=== PATIENT | female | born 1975 | race Caucasian/White ===

== ENCOUNTER 2017-06-20 15:43 | Outpatient (CLI) | payer MEDICAID ==
[2017-06-20 16:12] LABS: BASOPHILS 0.2 % (0-2); EOSINOPHILS 1.5 % (0-7); HEMATOCRIT 34.8 % (36.0-48.0); IMMATURE GRANULOCYTES 0.6 % (0-5); LYMPHOCYTES 16.1 % (15-50); MCH 29.9 pg (26.0-34.0); MCHC 34.5 g/dL (31.0-37.0); MCV 86.6 fL (80.0-100.0); MEAN PLATELET VOLUME 10.6 fL (7.4-10.4); NEUTROPHILS 73.6 % (40-80); PLATELET COUNT 192 10x3/uL (130-400); RBC 4.02 10x6/uL (4.00-5.40); RDW 13.5 % (11.5-14.5); WBC 10.7 10x3/uL (4.8-10.8)
[2017-06-20 16:28] LABS: ALBUMIN 2.6 g/dL (3.4-5.0); ALKALINE PHOSPHATASE 170 U/L (46-116); ALT (SGPT) 18 U/L (10-68); BILIRUBIN - INDIRECT 0.11 mg/dL (0.00-1.00); BILIRUBIN - TOTAL 0.15 mg/dL (0.2-1.3); CALC OSMOLALITY 280 mosm/kg (275-300); CALCIUM 8.2 mg/dL (8.5-10.1); CARBON DIOXIDE 24.2 mmol/L (21.0-32.0); CHLORIDE - SERUM 106 mmol/L (98-107); CREATININE - SERUM 0.8 mg/dL (0.6-1.3); GLUCOSE 80 mg/dL (74-106); POTASSIUM - SERUM 3.1 mmol/L (3.5-5.1); PROTEIN - SERUM 6.1 g/dL (6.4-8.2); SODIUM 142 mmol/L (136-145); UREA NITROGEN 11 mg/dL (7-18); URIC ACID 3.6 mg/dL (2.6-7.2); eGFR NON AFRICAN AMERICAN 84 mL/min (90-120)
[2017-06-20 16:35] LABS: BILIRUBIN - DIRECT 0.04 mg/dL (0.00-0.30)
[2017-06-20 16:39] LABS: APPEARANCE HAZY (CLEAR); COLOR YELLOW (YELLOW); NITRITE NEGATIVE (NEGATIVE); PROTEIN 1+ mg/dL (NEGATIVE); SPECIFIC GRAVITY 1.015 (1.005-1.020)
[2017-06-20 16:40] LABS: BILIRUBIN NEGATIVE (NEGATIVE); GLUCOSE NEGATIVE (NEGATIVE); KETONE NEGATIVE (NEGATIVE); UROBILINOGEN NORMAL (NORMAL)
[2017-06-20 16:41] LABS: BACTERIA MANY /hpf (NONE SEEN); MUCUS <1+ /lpf (NONE SEEN)
== END 2017-06-20 20:52 | disposition other institution (70) ==
LOC: D.LDO 15:43
PROVIDERS: Obstetrics & Gynecology
DX: O10.912 Unspecified pre-existing hypertension complicating pregnancy, second trimester (principal); Z3A.27 27 weeks gestation of pregnancy

== ENCOUNTER → 2018-02-15 15:01 | Outpatient (CLI) | payer MEDICAID ==
[~2018-02-15 15:01] MED LIST: KEFLEX500 MG PO; LISINOPRIL10 MG PO; ZANTAC300 MG PO
[2018-02-17 08:32] VITALS: BMI 39.0
== END | disposition home or self-care (01) ==
LOC: D.CT 15:01
DX: R17 Unspecified jaundice (principal)

== ENCOUNTER 2018-02-17 07:04 | Day surgery (SDC) | payer MEDICAID ==
[~2018-02-17] VITALS: Ht 160 cm; Wt 100.0 kg
[2018-02-17 07:33] LABS: HEMATOCRIT 40.9 % (36.0-48.0); HEMOGLOBIN 14.1 g/dL (12-16); MCH 30.3 pg (26.0-34.0); MCHC 34.5 g/dL (31.0-37.0); MCV 87.8 fL (80.0-100.0); MEAN PLATELET VOLUME 9.5 fL (7.4-10.4); RBC 4.66 10x6/uL (4.00-5.40); RDW 12.9 % (11.5-14.5)
[2018-02-17] MEDS ORDERED: LISINOPRIL10 MG PO (08:25)
[2018-02-17] MEDS ORDERED: KEFLEX500 MG PO (08:26)
[2018-02-17] MEDS ORDERED: ZANTAC300 MG PO (08:27)
[2018-02-17 08:32] VITALS: BP 125/73; Ht 160 cm; Wt 100.0 kg
== END 2018-02-17 14:00 | disposition home or self-care (01) ==
LOC: D.OPS 07:04
PROVIDERS: Anesthesiology
DX: R93.2 Abnormal findings on diagnostic imaging of liver and biliary tract (principal)

== ENCOUNTER 2018-03-06 06:55 | Day surgery (SDC) | payer MEDICAID ==
[2018-03-03 10:31] LABS: HEMATOCRIT 41.3 % (36.0-48.0); HEMOGLOBIN 14.2 g/dL (12-16); MCH 30.4 pg (26.0-34.0); MCHC 34.4 g/dL (31.0-37.0); MCV 88.4 fL (80.0-100.0); MEAN PLATELET VOLUME 9.9 fL (7.4-10.4); RBC 4.67 10x6/uL (4.00-5.40); RDW 12.6 % (11.5-14.5); WBC 8.8 10x3/uL (4.8-10.8)
[~2018-03-06] VITALS: Ht 157.5 cm; Wt 104.3 kg
[2018-03-06 10:11] VITALS: BP 131/99; Ht 157.5 cm; Wt 104.3 kg
[2018-03-06] MEDS ORDERED: HYDROCODON-ACE1 EAC7 PO (12:23)
== END 2018-03-06 15:17 | disposition home or self-care (01) ==
LOC: D.OPS 06:55 → D.PAN 11:30 → D.OPS 15:17
PROVIDERS: Anesthesiology
DX: K80.71 Calculus of gallbladder and bile duct without cholecystitis with obstruction (principal)

== ENCOUNTER → 2019-09-06 09:31 | Outpatient (CLI) | payer OTHER ==
[2018-03-06 10:11] VITALS: BMI 40.3
[~2019-09-06 09:31] MED LIST changes: +HYDROCODON-ACE1 EAC7 PO
== END | disposition home or self-care (01) ==
LOC: D.NM 09:31
PROVIDERS: ATTEND Nurse Practitioner
DX: R94.6 Abnormal results of thyroid function studies (principal)

== ENCOUNTER → 2020-09-03 13:15 | Outpatient (CLI) | payer OTHER ==
[2018-03-06 10:11] VITALS: BMI 40.3
== END | disposition home or self-care (01) ==
LOC: D.MAMMO 13:15
PROVIDERS: ATTEND Nurse Practitioner
DX: Z12.31 Encounter for screening mammogram for malignant neoplasm of breast (principal)